=== PATIENT | male | born 1960 | race Caucasian/White ===

== ENCOUNTER → 2021-08-11 | Outpatient (CLI) | payer BC, OTHER ==
[~2021-08-11] MED LIST: ASPI325 PO; CLON1; IBUP400 PO; METF500 PO; METO25ER PO; MULVITMIND PO
== END | disposition home or self-care (01) ==
LOC: LAB SHORT 16:07
DX: N39.0 Urinary tract infection, site not specified (principal)
CPT/HCPCS: 87077; 87086; 87147; 87186

== ENCOUNTER 2022-08-16 08:29 | Day surgery (SDC) | payer BC, OTHER ==
[~2022-08-16] VITALS: Ht 188 cm; Wt 115.1 kg
[~2022-08-16 08:29] MED LIST changes: +METO50ER PO; +MULTIPLE VITAM1 EACH PO; +OMEP20ER PO; +ROSU10TA PO; +TAMS.4ER PO; +[UNRECOGNIZED DRUG - OTHER] PO
--- NOTE | 2022-08-16 12:32 | NUR ---
08/16/22 1232 JOAN LOCO HANDOUTS GIVEN FOR GERD AND HIGH FIBER. ENCOURAGED PT TO SPEAK TO HIS PCP ABOUT POSSIBLE SLEEP APNEA
== END 2022-08-16 10:35 | disposition home or self-care (01) ==
LOC: ORSCSDS 08:29
PROVIDERS: Internal Medicine Gastroenterology
PROC: 0DB58ZX Excision of Esophagus, Via Natural or Artificial Opening Endoscopic, Diagnostic (ICD-10-PCS; principal; 2022-08-16 09:45)
PROC: 0DB68ZX Excision of Stomach, Via Natural or Artificial Opening Endoscopic, Diagnostic (ICD-10-PCS; principal; 2022-08-16 09:45)
PROC: 0DB98ZX Excision of Duodenum, Via Natural or Artificial Opening Endoscopic, Diagnostic (ICD-10-PCS; principal; 2022-08-16 09:45)
DX: D50.9 Iron deficiency anemia, unspecified (principal); R10.13 Epigastric pain; K29.70 Gastritis, unspecified, without bleeding; K57.30 Diverticulosis of large intestine without perforation or abscess without bleeding; J44.9 Chronic obstructive pulmonary disease, unspecified; E66.9 Obesity, unspecified; K44.9 Diaphragmatic hernia without obstruction or gangrene; Z68.33 Body mass index [BMI] 33.0-33.9, adult; Z87.891 Personal history of nicotine dependence; Z79.84 Long term (current) use of oral hypoglycemic drugs; Z79.85 Long-term (current) use of injectable non-insulin antidiabetic drugs; Z79.899 Other long term (current) drug therapy
CPT/HCPCS: 82947; J2704; J7120

== ENCOUNTER → 2022-09-08 | Outpatient (CLI) | payer BC, OTHER ==
[2022-09-10 09:41] LABS: Stool Occult Bld Immuno 1 Negative (NEGATIVE)
== END ==
LOC: LAB 22:30 → LAB SHORT 22:30 → EDSTATUS 09-08 09:45 → LAB FUT 09-08 09:45
PROVIDERS: Internal Medicine Gastroenterology
DX: D50.9 Iron deficiency anemia, unspecified (principal)
CPT/HCPCS: 82274

== ENCOUNTER → 2022-09-28 | Outpatient (CLI) | payer BC, OTHER ==
[2022-10-01 10:34] LABS: Stool Occult Bld Immuno 1 Negative (NEGATIVE)
== END | disposition home or self-care (01) ==
LOC: LAB SHORT 06:23
PROVIDERS: Internal Medicine Gastroenterology
DX: D50.9 Iron deficiency anemia, unspecified (principal)
CPT/HCPCS: 82274

== ENCOUNTER 2025-04-25 13:40 | Day surgery (SDC) | payer OTHER ==
[~2025-04-25] VITALS: Ht 188 cm; Wt 104.7 kg
[~2025-04-25 13:40] MED LIST changes: +Glycopyrrolate 0.2 MG/ML 1MLVIAL ONE; +Ondansetron HCl 2 MG / ML 2ML Vial ONE; +ePHEDrine Sulfate 50 MG/ML 1ML Injection ONE
[2025-04-25] MEDS ORDERED: RYBELSUS3 MG (13:52)
[2025-04-25] MEDS ORDERED: FISH OIL 1,0001 EA10 (13:53)
[2025-04-25] MEDS ORDERED: EZALLOR SPRINKLE5 MG (13:54)
[2025-04-25] MEDS ORDERED: IBUP400 (13:54)
[2025-04-25] MEDS ORDERED: OMEP20ER (13:54)
[2025-04-25] MEDS ORDERED: FLUT1DIS8 (13:54)
[2025-04-25 15:40] VITALS: BP 113/84
== END 2025-04-25 15:35 | disposition home or self-care (01) ==
LOC: ORSCSDS 13:40
PROVIDERS: Internal Medicine Gastroenterology
PROC: 0DBM8ZX Excision of Descending Colon, Via Natural or Artificial Opening Endoscopic, Diagnostic (ICD-10-PCS; principal; 2025-04-25 15:15)
PROC: 0DBK8ZX Excision of Ascending Colon, Via Natural or Artificial Opening Endoscopic, Diagnostic (ICD-10-PCS; principal; 2025-04-25 15:15)
PROC: 0DBL8ZX Excision of Transverse Colon, Via Natural or Artificial Opening Endoscopic, Diagnostic (ICD-10-PCS; principal; 2025-04-25 15:15)
DX: Z12.11 Encounter for screening for malignant neoplasm of colon (principal); Z86.0101 Personal history of adenomatous and serrated colon polyps; D12.2 Benign neoplasm of ascending colon; D12.3 Benign neoplasm of transverse colon; D12.4 Benign neoplasm of descending colon; E11.9 Type 2 diabetes mellitus without complications; K21.9 Gastro-esophageal reflux disease without esophagitis; Z87.891 Personal history of nicotine dependence; K57.30 Diverticulosis of large intestine without perforation or abscess without bleeding; Z79.899 Other long term (current) drug therapy
CPT/HCPCS: 82947; 88305; J0461; J2003; J2405; J2704; J7120